=== PATIENT | female | born 1955 | race Caucasian/White ===

== ENCOUNTER → 2017-04-28 | Outpatient (CLI) | payer OTHER ==
[~2017-04-28] MED LIST: BENADRYL25 M1 PO
--- NOTE | ~2017-04-28 | BD1 ---
[facility] A Service of [facility] & [facility] RADIOLOGY TEXT RESULTS PATIENT: BJ SUAREZ LOCATION: [facility] : 51 UNIT #: [id number] AGE: [address]: Jorge A Hyde MD SEX: F ORDER DR: [id number] [facility] [address] [place], [place] [address] [id number] O MR#: [id number] Acc #: [id number] NAME: BJ SUAREZ : 1955 SEX: F STUDY DATE/TIME: 04/28/2017 13:59 UNIT: [facility] ROOM: STUDY DESCRIPTION: BD Dexa Bone Dens 1+ Site Attending Physician: Jorge A Hyde M.D. Referring Physician: Jorge A Hyde M.D. Ordering Physician: Jorge A Hyde M.D. Primary Care Physician: Jorge A Hyde M.D. MEDICAL IMAGING REPORT This report is preliminary unless electronic signature is present EXAM DXA scan, 04/28/2017. HISTORY Status post menopause with history of hormone replacement therapy. Osteopenia. Hysterectomy at age 31. Diabetes. Hypertension with blood pressure medication for 30 years. Family history of osteoporosis in mother. FINDINGS Bone mineral density in the lumbar spine from L1-L4 is 0.928 g/cm2, which is 1.1 standard deviations below the mean when compared to the young adult reference population, which is characteristic of osteopenia. This is 0.6 standard deviation above the mean when compared to the age-matched population. Bone mineral density in the left hip was 0.842 g/cm2, which is 0.8 standard deviation below the mean when compared to the young adult reference population, which is within the range of normal. This is 0.3 standard deviation above the mean when compared to the age-matched population. IMPRESSION Bone mineral density in the lumbar spine characteristic of osteopenia and within the left hip within the range of normal. Dictated by... Jorge Onofre M.D. THIS IS AN ELECTRONICALLY VERIFIED REPORT Jorge Onofre M.D. at 04/29/2017 7:28 AM [facility]. [facility] A Service of [facility] & [facility] RADIOLOGY TEXT RESULTS PATIENT: BJ SUAREZ [id number] : 51 UNIT #: [id number] AGE: [address]: Jorge A Hyde MD SEX: F ORDER DR: Lashanda TD: 04/28/2017 17:50 JOB #: [id number] MEDICAL IMAGING REPORT Page 1 of 1 COPY
== END | disposition home or self-care (01) ==
LOC: CWCC 13:30
DX: Z13.820 Encounter for screening for osteoporosis (principal); L63.8 Other alopecia areata; Z78.0 Asymptomatic menopausal state
CPT/HCPCS: 77080